=== PATIENT | male | born 1955 ===

== ENCOUNTER 2023-04-13 19:39 | Emergency (ER) | payer OTHER ==
[~2023-04-13] VITALS: Ht 177.8 cm; Wt 117.9 kg
[2023-04-13 20:16] VITALS: BP 163/76
[2023-04-13 20:57] LABS: Source, Urine Clean Catch
[2023-04-13 21:02] LABS: Appearance, Urine Clear (Clear); Bilirubin, Urine Neg (Neg); Blood, Urine 4+ (Neg); Color, Urine Yellow (P-Yellow); Glucose Qualitative, Urine 4+ (Neg); Ketones, Urine Neg (Neg); Leukocyte Esterase, Urine Neg (Neg); Nitrite, Urine Neg (Neg); Protein, Urine 1+ (Neg); Urobilinogen, Urine NORM (Normal)
[2023-04-13 21:12] LABS: Hyaline Casts 0-2 /lpf (0-2); White Blood Cells, Urine 0-2 /hpf (0-5)
[2023-04-13 21:13] LABS: Bacteria Not Seen /hpf; Squamous Epithelial Cells Not Seen /hpf (Few)
[2023-04-13] MEDS ORDERED: Pyridium100 MG PO (22:00)
== END 2023-04-13 22:13 | disposition home or self-care (01) ==
LOC: ER 19:39
PROVIDERS: Physician Assistant
DX: R33.9 Retention of urine, unspecified (principal); Z87.438 Personal history of other diseases of male genital organs; Z79.899 Other long term (current) drug therapy
CPT/HCPCS: 51798; 81001; 99283; A9270